=== PATIENT | female | born 1955 | race African-American/Black ===

== ENCOUNTER 2017-06-06 13:39 | Emergency (ER) | payer MEDICAID, OTHER ==
[~2017-06-06] VITALS: Ht 172.7 cm; Wt 94.0 kg
[2017-06-06] MEDS ORDERED: ACETAMINOPHEN 500MG TABLET PO ONE (15:15)
[2017-06-06] MEDS ORDERED: ACETAMINOPHEN 500MG TABLET PO SCH (15:52)
[2017-06-06 19:50] VITALS: BP 142/74
== END 2017-06-06 19:51 | disposition home or self-care (01) ==
LOC: ER 15:12
DX: M25.561 Pain in right knee (principal); F17.200 Nicotine dependence, unspecified, uncomplicated; I10 Essential (primary) hypertension; Z88.0 Allergy status to penicillin
CPT/HCPCS: 73562; 99284